=== PATIENT | male | born 1990 | race African-American/Black ===

== ENCOUNTER 2020-04-14 12:46 | Outpatient (REF) | payer OTHER, SELFPAY ==
[2020-04-14 14:31] LABS: Anion Gap 11 (12-20); Blood Urea Nitrogen 9 mg/dL (9-16); Calcium 9.6 mg/dL (8.4-10.2); Carbon Dioxide 30 mmol/L (22-29); Chloride 103 mmol/L (96-108); Estimated Glomerular Filt Rate > 60; Glucose Random 110 mg/dL (60-115); Potassium 4.3 mmol/L (3.3-5.1); Sodium 140 mmol/L (135-145)
== END 2020-04-14 12:47 | disposition home or self-care (01) ==
LOC: HO.WFDLDS 12:46
PROVIDERS: Visit Provider Hospitalist
DX: M54.31 Sciatica, right side (principal)
CPT/HCPCS: 36415; 80048

== ENCOUNTER 2020-04-15 12:23 | Emergency (ER) | payer OTHER, SELFPAY ==
[2020-04-15 12:25] VITALS: BP 134/73; PULSE 81; RESP 14; TEMP 36.7; O2SAT 98; BMI 35.3
--- NOTE | 2020-04-15 12:32 | ED_ITS ---
HPI - Back Pain/Injury General Chief Complaint: Back Pain/Injury Stated Complaint: Back Pain Time Seen by Provider: 04/15/20 12:31 Source: patient Mode of arrival: ambulatory Limitations: no limitations History of Present Illness HPI Narrative: 30 y/o male presenting with worsening right sided sciatic pain for the last 2-3 days. He states he has had the pain for several months and denies any known injury or trauma. He describes the pain and sharp and shooting; it starting in his right lower back and going down the back of his leg. Worse with walking and bending down today at the grocery store. He works for [employer] and has been doing a lot of lifting but denies heavy lifting. He was seen at Urgent care clinic yesterday for shooting pains and had his gabapentin dose increased. Today he reports worsening spasms. He denies bowel or bladder incontinence, saddle parethseias, no IVDA. No leg weakness. MD elicited complaint: back pain Pertinent past history: prior back pain Onset (ago): day(s) Timing: constant Severity: moderate Similar Symptoms Previously: Yes Quality: burning, sharp and spasming Location: right lower back Radiation: right upper leg and right leg below the knee Exacerbating factors: movement and lifting Relieving factors: immobilization and medication Context: unknown Associated symptoms: difficulty walking, arthralgias and myalgias Treatments prior to arrival: other medications Related Data Home Medications Medication Instructions Recorded Confirmed ondansetron HCl 4 mg tablet 4 mg PO DAILY tab 11/13/19 04/14/20 ondansetron HCl 4 mg tablet 4 mg PO Q8H 03/02/20 04/14/20 clonidine HCl 0.2 mg tablet 0.2 mg PO BEDTIME 04/14/20 04/14/20 divalproex 500 mg tablet,delayed 500 mg PO BID 04/14/20 04/14/20 release gabapentin 400 mg capsule 400 mg PO TID 04/14/20 04/14/20 methadone 5 mg/5 mL oral solution 100 mg PO DAILY ml 04/14/20 04/14/20 propranolol 10 mg tablet 10 mg PO BID 04/14/20 04/14/20 Previous Rx's Medication Instructions Recorded gabapentin 600 mg tablet 600 mg PO TID #90 tab 04/14/20 ibuprofen 600 mg tablet 600 mg PO Q8H PRN #90 tab 04/14/20 cyclobenzaprine 10 mg PO TID PRN #10 tab 04/15/20 ibuprofen 600 mg PO Q8H PRN #20 tab 04/15/20 lidocaine [Lidoderm] 1 patch TOPICAL DAILY #15 ea 04/15/20 Allergies Allergy/AdvReac Type Severity Reaction Status Date / Time No Known Allergies Allergy Verified 04/15/20 12:25 Review of Systems Review of Systems: Constitutional: No Fever, No Chills Gastrointestinal: No Nausea, No Vomiting, No Diarrhea, No abdominal Pain Genitourinary: No Dysuria, No Urinary Frequency, No Hematuria Musculoskeletal: + joint pain, + Myalgias Skin: No Skin Lesions, No rash Neuro: No Weakness, No Numbness, No Dizziness, No Headache Psych: + Anxiety/Panic, No Depression Heme/Lymph: No Bruising, No Lymphadenopathy PMFSH Past Medical History Attestation statement: The following information was validated with the patient. Surgical History History of eye surgery History of surgery on arm Family History Family History Father No problems noted. Mother No problems noted. Maternal Grandmother Diabetes mellitus Maternal Aunt Diabetes mellitus Maternal Uncle Diabetes mellitus Social History Social History Smoked in Last 30 Days: No Use of substances other than those prescribed or required for medical reasons: No Advance Directives: Yes Advance Directives Information Provided: Yes Advance Directives on File: No Physical Exam Vital Signs: Vital Signs: Last Vital Signs Temp 98.0 F 04/15/20 12:25 Pulse 81 04/15/20 12:25 Resp 14 04/15/20 12:25 BP 134/73 04/15/20 12:25 Pulse Ox 98 04/15/20 12:25 Body Mass Index 35.3 Appearance: Alert. Oriented X3. No acute distress. HEENT: normal inspection CVS: Normal heart rate and rhythm. Pulses normal. Respiratory: No respiratory distress. Skin: Skin warm and dry. Normal skin color. Normal skin turgor. No rashes. Back: right lower lumbar area and SI joint with tenderness, +straight leg raise on the right Extremities: atraumtic, no LE edema. normal DTRs Neuro: Oriented X 3. No motor deficit. No sensory deficit. Course Course Course Narrative: 30 y/o male with history of sciatica presenting with worsening symptoms for the last few days. c/o spasms no red flag symptoms of LBP. Will give trial of NSAID, muscle relaxer and lidoderm patches. He has a follow up appointment with his PCP and podiatry at the end of this month. Stable for d/c. Discharge Plan Discharge Clinical Impression: Right sided sciatica Patient Disposition: Home, Self-Care Instructions: Sciatica (ED), Lower Back Exercises (ED) Additional Instructions: No bending, lifting >10lbs or twisting movements. Rest. No strenuous activity. Use ice several times per day for 20 minutes at a time for the next 48 hours and then change to heat. Take medications as prescribed to help with pain and discomfort. Follow up with your Primary Care Doctor as scheduled. Recommend orthopedic shoe inserts for your sneakers. If your pain worsens, if you develop new numbness, tingling, weakness, loss of function or any incontinence call 911 or come back to the ER right away for evaluation. Prescriptions: New cyclobenzaprine 10 mg tablet 10 mg PO TID PRN (Reason: muscle spasm) Qty: 10 RF: 0 lidocaine [Lidoderm] 5 % adhesive patch,medicated 1 patch topical DAILY Qty: 15 RF: 0 ibuprofen 600 mg tablet 600 mg PO Q8H PRN (Reason: pain) Qty: 20 RF: 0 No Action ondansetron HCl 4 mg tablet 4 mg PO DAILY RF: 0 ondansetron HCl 4 mg tablet 4 mg PO Q8H RF: 0 gabapentin 400 mg capsule 400 mg PO TID RF: 0 divalproex [Depakote] 500 mg tablet,delayed release (DR/EC) 500 mg PO BID RF: 0 clonidine HCl 0.2 mg tablet 0.2 mg PO BEDTIME RF: 0 methadone 5 mg/5 mL solution 100 mg PO DAILY RF: 0 propranolol 10 mg tablet 10 mg PO BID RF: 0 gabapentin 600 mg tablet 600 mg PO TID Qty: 90 RF: 0 ibuprofen 600 mg tablet 600 mg PO Q8H PRN (Reason: pain) Qty: 90 RF: 1 Stand Alone Forms: Work/School Release
[2020-04-15] MEDS: Ketorolac Tromethamine 60 MG/2 ML VIAL IM (13:02)
== END 2020-04-15 13:08 | disposition home or self-care (01) ==
LOC: HO.ED 12:45
PROVIDERS: Emergency Provider Emergency Medicine
DX: M54.41 Lumbago with sciatica, right side (principal)
CPT/HCPCS: 96372; 99283; 99284; J1885

== ENCOUNTER → 2021-01-20 10:47 | Outpatient (BNVA) | payer OTHER, SELFPAY | PROVIDERS: PCP Hospitalist; Visit Provider Orthopaedic Surgery | DX: S43.439D Superior glenoid labrum lesion of unspecified shoulder, subsequent encounter (principal) | CPT/HCPCS: 99212 ==

== ENCOUNTER → 2021-02-24 10:39 | Outpatient (BNVA) | payer OTHER, SELFPAY | PROVIDERS: PCP Hospitalist; Visit Provider Orthopaedic Surgery | DX: S43.432D Superior glenoid labrum lesion of left shoulder, subsequent encounter (principal) | CPT/HCPCS: 99212 ==

== ENCOUNTER 2021-03-15 13:14 | Outpatient (REF) | payer OTHER, SELFPAY ==
--- NOTE | ~2021-03-15 | MR_ITS ---
EXAMINATION: MR SHOULDER WITH CONTRAST, LEFT CLINICAL INFORMATION: Left shoulder pain. COMPARISON: MRI 11/06/2018. TECHNIQUE: MRI of the shoulder was performed following the intra-articular administration of a dilute gadolinium-containing solution (arthrogram) on a high-field scanner. FINDINGS: ROTATOR CUFF: Intact. No muscle atrophy or fatty infiltration. BICEPS: Normal. CORACOACROMIAL ARCH: The undersurface of the acromion is flat with no subacromial spur. Minimal acromioclavicular osteoarthritis. LABRUM/CAPSULE: Evidence of a posterior labral repair. Contrast extends into an oblique linear defect along the posterior chondrolabral junction at the site of the previous repair on axial images 12-14. Correlate with the postsurgical result. Spurring of the adjacent posterior glenoid rim. Subtle linear extension of contrast into an oblique fissure of the anterior inferior glenoid articular cartilage, potentially a small undersurface tear at the adjacent chondrolabral junction. This is demonstrated on coronal images 13-15 and axial images 17-18. This is a new finding. GLENOHUMERAL JOINT/MARROW: No additional chondral irregularities. MR/MR shoulder LT w con IMPRESSION: Oblique linear extension of contrast along the posterior chondrolabral junction at the site of the labral repair. Correlate with the postsurgical result. Additionally, there is subtle linear extension of contrast at the anterior inferior aspect of the glenoid which appears to represent a chondral fissure, possibly extending to the chondrolabral junction. No rotator cuff tear.
--- NOTE | ~2021-03-15 | FL_ITS ---
EXAMINATION: XR ARTHROGRAM SHOULDER, LEFT CLINICAL INFORMATION: History of previous left shoulder surgery. Now complains of left shoulder pain. COMPARISON: None TECHNIQUE: Following an explanation of the fluoroscopy-guided pre-MRI left shoulder arthrogram procedure, benefits and risk, a written consent was obtained. The patient was placed supine on the fluoroscopy table and the anterior aspect of the left shoulder was cleaned and draped in the usual sterile manner. 1% lidocaine was injected at the puncture site. A 22-gauge spinal needle was inserted from the skin into the left shoulder joint space under fluoroscopy guidance and 1-2 mL of nonionic contrast was injected and a single image obtained. After confirming contrast in the joint space, 0.1 mL of gadolinium dilated with 10 mL of saline and 1% lidocaine was injected and the needle withdrawn. Complete hemostasis was achieved at puncture site. Sterile Band-Aid applied postprocedure. Patient tolerated the procedure extremely well. FINDINGS: On 3 images obtained under fluoroscopy, there is normal glenohumeral joint space. There is contrast visualized in the glenohumeral joint space. No loose bodies or bony erosive changes. Diluted gadolinium was injected into the shoulder for patient to be scanned in MRI. FLUOROSCOPY TIME: 0.9 minutes DOSE AREA PRODUCT: 4.012 Gy-m2 (microgray-meter squared) FL/FL arthrogram shoulder LT IMPRESSION: Successful fluoroscopy-guided left shoulder arthrogram performed for MRI.
== END 2021-03-15 13:15 | disposition home or self-care (01) ==
LOC: HO.XRAY 13:14
PROVIDERS: PCP Hospitalist; Visit Provider Orthopaedic Surgery
DX: S43.432A Superior glenoid labrum lesion of left shoulder, initial encounter (principal); X58.XXXA Exposure to other specified factors, initial encounter; Y93.9 Activity, unspecified; Y92.9 Unspecified place or not applicable; Y99.9 Unspecified external cause status
CPT/HCPCS: 23350; 73040; 73222; A9585

== ENCOUNTER → 2021-03-30 14:47 | Outpatient (BNVA) | payer OTHER, SELFPAY | PROVIDERS: PCP Hospitalist; Visit Provider Orthopaedic Surgery | DX: S43.432A Superior glenoid labrum lesion of left shoulder, initial encounter (principal) | CPT/HCPCS: 99212 ==

== ENCOUNTER 2021-04-28 09:11 | Day surgery (SDC) | payer OTHER, SELFPAY ==
[2021-04-25 11:36] VITALS: BMI 25.2
[2021-04-25 14:42] VITALS: BMI 33.7
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
[2021-04-28] VITALS (10 sets, daily range): BP systolic 113–138; BP diastolic 63–85; PULSE 62–83; RESP 16–20; TEMP 36.1–36.4; O2SAT 94–97
[2021-04-28 09:45] LABS: Glucose, Whole Blood 158 mg/dL (60-115)
[2021-04-28] MEDS: Lactated Ringers 1,000 ML 100 ML IVCONT (09:51)
--- NOTE | 2021-04-28 10:35 | MHC.SHP ---
Pre-Procedural Eval Section A Date of Service: 04/28/21 The patient is an INPATIENT: No Changes since office visit: Yes Patient answered all questions; No Cold of Flu in the past 2 weeks, No New Medical Problems and No Changes in Medication The History & Physical has been completed within 30 days and I have reviewed it.: Yes Section B Chief Complaint: superior glenoid labrum Allergies: Allergies Allergy/AdvReac Type Severity Reaction Status Date / Time No Known Allergies Allergy Verified 04/28/21 09:19 Plan I have reviewed the history and physical and performed a pertinent physical examination on my patient. No changes have occurred unless specified.
--- NOTE | 2021-04-28 12:41 | PM.OP ---
Brief Operative Note Date of Service: 04/28/21 Pre-op diagnosis: left labral tear Post-op diagnosis: same Procedure: labral debridement left shoulder Implants: none Surgeon: Minh Mccauley MD Anesthesia: GETA and regional Was an Integrated Circuit Ic Layout Designer used for this Procedure?: Yes Integrated [employer] Ic Layout Designer: Tigist Yen Estimated blood loss (mL): 10 IV fluids (mL): 500 Pathology: none sent Condition: stable Disposition: PACU
--- NOTE | 2021-04-28 12:44 | P.OP_ITS ---
Operative Note Operative Note Date of Service: 04/28/21 Narrative: Pre-op diagnosis: left labral tear Post-op diagnosis: same Procedure: labral debridement left shoulder Implants: none Surgeon: Minh Mccauley MD Anesthesia: GETA and regional Was an Fixed Income Trading Vice President used for this Procedure?: Yes [employer] Income Trading Vice President: Tigist Yen Estimated blood loss (mL): 10 IV fluids (mL): 500 Pathology: none sent Condition: stable Disposition: PACU Procedure in detail: Patient was brought to the operating room and placed in the beach chair position on the surgical table. He was prepped and draped in standard sterile fashion and a time out was called to identify proper site, proper procedure and IV antibiotics per weight were administered. I began by making a posterolateral stab incision with a 15 blade. A blunt trochar was placed into the glenohumeral joint and I insufflated the joint with saline and a 30 degree arthroscope was placed. I established an outside- in anterior portal just distal to the biceps tendon. I then began my inspection of the glenohumeral joint. There were no cartilage changes. There was mild synovitis in the anterior interval. This was debrided. Subscapularis was intact. The anterior and superior labrum was intact with an intact biceps anchor. There were two sutures in the posterior labrum that did appear to be articulating with the posterior humeral head. While the posterior labrum was intact the sutures were removed. I debrided some scattered fraying of the labrum. Once I was satisfied, final images were captured and I removed all instrumentation. Portals were closed with nylon. Patient was placed in an abduction sling, extubated and brought to the recovery room in stable condition. There were no known complications.
[2021-04-28] MEDS: fentaNYL citrate/PF 100 MCG/2 ML VIAL 50 MCG IVPUSH (13:55)
[2021-04-28] MEDS: oxyCODONE HCl Immed Release 5 MG TABLET 10 MG PO (13:55)
== END 2021-04-28 14:44 | disposition home or self-care (01) ==
LOC: HO.SSS 09:12
PROVIDERS: PCP Hospitalist; Visit Provider Orthopaedic Surgery
PROC: (CPT 29805; principal; 2021-04-28 11:10)
DX: S43.432A Superior glenoid labrum lesion of left shoulder, initial encounter (principal); M65.812 Other synovitis and tenosynovitis, left shoulder; Z98.890 Other specified postprocedural states; X58.XXXA Exposure to other specified factors, initial encounter; Y93.9 Activity, unspecified; Y92.9 Unspecified place or not applicable; Y99.8 Other external cause status; F90.9 Attention-deficit hyperactivity disorder, unspecified type; F31.9 Bipolar disorder, unspecified; E11.9 Type 2 diabetes mellitus without complications; K76.0 Fatty (change of) liver, not elsewhere classified; Z79.899 Other long term (current) drug therapy; F17.290 Nicotine dependence, other tobacco product, uncomplicated
CPT/HCPCS: 29822; 82947; J0171; J0690; J1100; J1200; J2250; J2405; J3010

== ENCOUNTER 2021-05-04 08:39 | Outpatient (RCR) | payer OTHER, SELFPAY | END 2021-06-13 12:22 | disposition home or self-care (01) | LOC: HO.PT 08:39 | PROVIDERS: Visit Provider Physician Assistant | DX: Z98.890 Other specified postprocedural states (principal) ==

== ENCOUNTER → 2021-05-04 14:13 | Outpatient (BNVA) | payer OTHER, SELFPAY | PROVIDERS: PCP Hospitalist; Visit Provider Physician Assistant | DX: S43.432D Superior glenoid labrum lesion of left shoulder, subsequent encounter (principal) | CPT/HCPCS: 99212 ==

== ENCOUNTER → 2021-06-22 10:04 | Outpatient (BNVA) | payer OTHER, SELFPAY | PROVIDERS: PCP Hospitalist; Visit Provider Physician Assistant | DX: S43.432A Superior glenoid labrum lesion of left shoulder, initial encounter (principal) | CPT/HCPCS: 99212 ==

== ENCOUNTER 2021-08-06 11:09 | Emergency (ER) | payer OTHER, SELFPAY ==
--- NOTE | ~2021-08-06 | CT_ITS ---
EXAMINATION: CT ABDOMEN AND PELVIS WITHOUT CONTRAST CLINICAL INFORMATION: Diffuse abdominal pain. COMPARISON: Abdominal ultrasound 05/19/2021. TECHNIQUE: Multidetector volumetric imaging was performed from the superior aspect of the liver through the pubic symphysis. Sagittal and coronal reformatted images were obtained on the technologist's workstation. This CT examination was performed using dose optimization techniques as appropriate, variously including the following: *Automated exposure control. *Adjustment of mA and/or kV according to patient size (this includes techniques or standardized protocols for targeted exams where dose is matched to indication/reason for exam; i.e. extremities or head). *Use of iterative reconstruction technique. DLP: 928 mGy-cm FINDINGS: LUNG BASES: The visualized lung bases are unremarkable. LIVER, GALLBLADDER, AND BILIARY TREE: There is decreased attenuation of the liver consistent with hepatic steatosis with focal fatty sparing around the gallbladder. Similar findings were seen on the recent ultrasound. No focal hepatic lesion or biliary ductal dilatation is present. The gallbladder is unremarkable with no evidence of radiopaque gallstones, gallbladder wall thickening, or obvious pericholecystic inflammatory changes. PANCREAS: Unremarkable. SPLEEN: Unremarkable. ADRENAL GLANDS: Unremarkable. KIDNEYS AND URETERS: The kidneys are normal in size, shape, and attenuation. No hydronephrosis, hydroureter, or calculi seen. No perinephric stranding. BLADDER: Unremarkable. GASTROINTESTINAL TRACT: The small and large bowel are unremarkable. The appendix is unremarkable. ABDOMINAL WALL: No significant hernia is appreciated. LYMPH NODES: Normal. VASCULAR: Unremarkable. PELVIC VISCERA: Unremarkable. OSSEOUS STRUCTURES: Unremarkable. CT/CT abdomen pelvis wo con IMPRESSION: Aside from hepatic steatosis, no other abnormality is seen. A cause for the patient's diffuse abdominal pain has not been found. Fleischner guidelines were followed.
[2021-08-06 11:12] VITALS: BP 152/95; PULSE 83; RESP 16; TEMP 35.7; O2SAT 97; BMI 33.5
[2021-08-06 11:26] LABS: MANUAL DIFF FLAG NO
[2021-08-06 11:28] LABS: Basophils Percent Auto 0.5 % (0-2); Eosinophils Percent Auto 0.5 % (0-4); Imm Gran Abs Auto 0.01 X10*3/uL (0.00-0.03); Imm Gran Pct Auto 0.2 % (0.0-0.4); Lymphocytes Percent Auto 30.3 % (20-40); Mean Corpuscular HGB Conc 33.3 g/dl (31.0-36.0); Mean Corpuscular Hemoglobin 28.1 pg (27.0-33.0); Mean Corpuscular Volume 84.2 fL (80.0-98.0); Mean Platelet Volume 9.3 fL (9.4-12.4); Monocytes Absolute Auto 0.5 X10*3/uL (0.1-1.2); Neutrophils Percent Auto 61.5 % (45-73); Platelet Count 404 X10*3/uL (160-400); Red Blood Count 4.99 X10*6/uL (4.60-5.80); Red Cell Distribution Width 11.9 % (11.0-16.0); White Blood Count 6.4 X10*3/uL (4.8-10.8)
[2021-08-06 11:30] LABS: Glucose, Whole Blood 135 mg/dL (60-115)
[2021-08-06 11:56] LABS: Anion Gap 14 (12-20); Blood Urea Nitrogen 8 mg/dL (9-16); Calcium 10.1 mg/dL (8.4-10.2); Carbon Dioxide 28 mmol/L (22-29); Chloride 101 mmol/L (96-108); Creatinine Clr Calc Pharmacy 195.2; Estimated Glomerular Filt Rate > 60; Glucose Random 130 mg/dL (60-115); Potassium 4.2 mmol/L (3.3-5.1); Sodium 139 mmol/L (135-145)
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
[2021-08-06 14:28] LABS: Alanine Aminotransferase 72 U/L (0-40); Albumin Level 4.4 g/dL (3.5-5.0); Alkaline Phosphatase 108 U/L (39-117); Aspartate Amino Transferase 57 U/L (5-37); Bilirubin Direct < 0.2 mg/dL (0.0-0.5); Bilirubin Total 0.2 mg/dL (0.0-1.0); Lipase 24 U/L (8-78); Total Protein 7.9 g/dL (6.5-8.0)
[2021-08-06 14:53] VITALS: BP 128/88; PULSE 78; RESP 20; TEMP 36.9; O2SAT 98
[2021-08-06] MEDS: Morphine Sulfate 4 MG/ML CARTRIDGE IVPUSH (15:07)
[2021-08-06] MEDS: ondansetron HCL 4 MG/2 ML VIAL IVPUSH (15:07)
[2021-08-06] MEDS: Famotidine/PF 20 MG/2 ML VIAL IVPUSH (15:07)
== END 2021-08-06 16:02 | disposition home or self-care (01) ==
PROVIDERS: Nurse Practitioner Family; Emergency Provider Emergency Medicine Emergency Medical Services; PCP Family Medicine
DX: K59.00 Constipation, unspecified (principal); E11.9 Type 2 diabetes mellitus without complications; Z79.899 Other long term (current) drug therapy
CPT/HCPCS: 36415; 74176; 80048; 80076; 82947; 83690; 85025; 96374; 96375; 99284; J2270; J2405

== ENCOUNTER 2021-08-06 20:18 | Emergency (ER) | payer OTHER, SELFPAY ==
[2021-08-06 20:27] VITALS: BP 123/81; PULSE 87; RESP 20; TEMP 36.4; O2SAT 97; BMI 33.7
[2021-08-06 23:08] LABS: Glucose, Whole Blood 131 mg/dL (60-115)
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
[2021-08-06 23:57] VITALS: BP 160/99; PULSE 77; RESP 18; TEMP 37.2; O2SAT 99
[2021-08-07 00:02] VITALS: BP 158/84; PULSE 80; RESP 18
[2021-08-07 00:06] LABS: Glucose, Whole Blood 110 mg/dL (60-115)
--- NOTE | 2021-08-07 01:46 | PC.NURSE ---
Soap suds enema administered-patient tolerated procedure well and had a large bowel movement.
== END 2021-08-07 01:52 | disposition home or self-care (01) ==
PROVIDERS: Emergency Provider Internal Medicine; PCP Family Medicine
DX: K59.00 Constipation, unspecified (principal)
CPT/HCPCS: 82947; 99284